=== PATIENT | female | born 1965 | race Caucasian/White ===

== ENCOUNTER 2020-07-08 17:36 | Emergency (ER) | payer OTHER, BC ==
[2020-07-08] MEDS ORDERED: Ondansetron 4 MG Tab.DIS PO ONE (17:37)
[2020-07-08] MEDS ORDERED: traMADol 50 MG Tab PO ONE (17:37)
[2020-07-08] MEDS ORDERED: Ketorolac 30 MG/ML SDV IVPUSH ONE (17:55)
[2020-07-08] MEDS ORDERED: HYDROmorphone 2 MG/ML SDV IVPUSH ONE (17:55)
[2020-07-08] MEDS ORDERED: Ondansetron 4 MG/2 ML SDV IVPUSH ONE (17:56)
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
[2020-07-08] MEDS ORDERED: Diphtheria,Pertussis(Acell),Tetanus Vaccine 0.5 ML Syringe IM ONE (20:28)
[2020-07-08] MEDS ORDERED: Diphtheria,Pertussis(Acell),Tetanus Vaccine 0.5 ML Syringe ONE (20:33)
== END 2020-07-08 21:25 | disposition home or self-care (01) ==
LOC: FB.ED 17:36
DX: S13.4XXA Sprain of ligaments of cervical spine, initial encounter (principal); S23.3XXA Sprain of ligaments of thoracic spine, initial encounter; S40.012A Contusion of left shoulder, initial encounter; Z23 Encounter for immunization; V49.40XA Driver injured in collision with unspecified motor vehicles in traffic accident, initial encounter
CPT/HCPCS: 72125; 72128; 73030-LT; 90471; 90715; 96374; 96375; 99283; 99284-25; A9270-GY; J1170; J1885; J2405